=== PATIENT | male | born 1970 | race Caucasian/White ===

== ENCOUNTER 2016-11-05 19:19 | Emergency (ER) | payer OTHER ==
[~2016-11-05 19:19] MED LIST: ANTI-ITCH28 GM TOP; BACTRIM DS TABL1 TA1 PO; CLARITIN10 MG PO; FAMOTIDINE PO; KEFLEX PO; KEFLEX125 MG/5 M; MEDROL PO; PREDNISONE PO; RITALIN PO; SEROQUEL PO
== END 2016-11-05 21:46 | disposition home or self-care (01) ==
LOC: CFTX 19:19 → CED 19:19 → CFTX 21:08
DX: R21 Rash and other nonspecific skin eruption (principal)
CPT/HCPCS: 99282